=== PATIENT | female | born 1985 | race Caucasian/White ===

== ENCOUNTER 2022-09-09 20:38 | Emergency (ER) | payer OTHER, SELFPAY ==
--- NOTE | ~2022-09-09 | XR_ITS ---
EXAMINATION: XR toe 5th RT min 2V INDICATION: Right fifth toe pain, initial encounter TECHNIQUE: Four views of the right fifth toe are obtained on five radiographs. COMPARISON: None available FINDINGS: There is an acute, traumatic, oblique distal shaft fracture of the fifth proximal phalanx e xtending from the lateral mid shaft to the distal/medial shaft. There are 35 degrees of valgus angula tion at the fracture site. The joint spaces are normal. No additional fracture is identified. There i s soft tissue swelling of the fifth toe. IMPRESSION: 1. Acute angulated shaft fracture of the fifth proximal phalanx. Reviewed, dictated and finalized at location F.
[2022-09-09 20:40] VITALS: BP 119/70; PULSE 92; RESP 14; TEMP 36.6; O2SAT 98
--- NOTE | 2022-09-09 20:48 | ED.LOWEXIN ---
HPI - Extremity Injury (Lower) General Chief Complaint: Extremity Injury, Lower <Danielle Webb APRN - Last Filed: 09/09/22 23:27> Stated Complaint: toe injury <Danielle Webb APRN - Last Filed: 09/09/22 23:27> Time Seen by Provider: 09/09/22 20:47 <Danielle Webb APRN - Last Filed: 09/09/22 23:27> Source: patient <Danielle Webb APRN - Last Filed: 09/09/22 23:27> Mode of arrival: ambulatory <Danielle Webb APRN - Last Filed: 09/09/22 23:27> Limitations: no limitations <Danielle Webb APRN - Last Filed: 09/09/22 23:27> History of Present Illness HPI Narrative: patient is a very pleasant 37 year old female who presents to the ED today ambulatory with spouse for evaluation of pain to the right little toe. patient jammed the toe into the wall. she states she has broken that toe in the past a long time ago as a child. pain is to the outer aspect. she did not take anything prior to arrival. she denies numbness/tingling. she states it's difficult to move the toe due to pain. denies chance of . denies any other injury. <Danielle Webb APRN - Last Filed: 09/09/22 23:27> Related Data Allergies/Adverse Reactions: Allergies Allergy/AdvReac Type Severity Reaction Status Date / Time No Known Allergies Allergy Verified 09/09/22 20:49 <Danielle Webb APRN - Last Filed: 09/09/22 23:27> Review of Systems Review of Systems: CONSTITUTIONAL: Denies fever, chills, or sweats. EYES: Denies visual changes, redness, or discharge. ENT: Denies rhinorrhea, congestion, sore throat, or otalgia. CARDIOVASCULAR: Denies chest pain, palpitations, or edema. RESPIRATORY: Denies cough or dyspnea. GASTROINTESTINAL: Denies abdominal pain, nausea, vomiting, or diarrhea. GENITOURINARY: Denies dysuria or hematuria. SKIN: Denies rash or itching. MUSCULOSKELETAL: Denies back pain. right little toe pain/swelling/bruising. NEUROLOGIC: Denies headache, numbness, or weakness. PSYCHIATRIC: Denies anxiety or depression. <Danielle Webb APRN - Last Filed: 09/09/22 23:27> All systems reviewed & are unremarkable except as noted in HPI and below <Danielle Webb APRN - Last Filed: 09/09/22 23:27> PMFSH Family History Family History: Family History (Updated 10/01/10 @ 16:28 by DOCTOR UNKNOWN) Mother Patient's mother is in good health <Danielle Webb APRN - Last Filed: 09/09/22 23:27> Social History Social History: Social History Alcohol intake: current <Danielle Webb APRN - Last Filed: 09/09/22 23:27> Exam Narrative: GENERAL: Well-appearing, well-nourished, and in no acute distress. HEAD: Normocephalic, atraumatic. EYES: PERRLA and EOMI. ENT: Nares clear, no rhinorrhea or epistaxis. Mucous membranes moist. CHEST: respirations regular and non-labored, No respiratory distress. HEART: Regular rate. RIGHT LOWER EXTREMITY: swelling/bruising/deformity to the right little toe. tenderness noted. decreased ROM. cap refill <2 seconds. distal NV intact. no tenderness proximal to the metatarsal. SKIN: Warm, dry, no rash. NEURO: No focal deficits. Alert and oriented x3. 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 I did independently interpret the x-ray which shows angulated fracture fifth proximal phalanx right toe <Jacey Hall MD - Last Filed: 09/10/22 06:12> Vital Signs Vital signs: Vital Signs Temperature 97.8 F 09/09/22 20:40 Pulse Rate 92 09/09/22 20:40 Respiratory Rate 14 09/09/22 20:40 Blood Pressure 119/70 09/09/22 20:40 Pulse Oximetry 98 09/09/22 20:40 Oxygen Delivery Room Air 09/09/22 20:40 Temperature 97.8 F 09/09/22 20:40 Pulse Rate 92 09/09/22 20:40 Respiratory Rate 14 09/09/22 20:40 Blood Pressure 119/70 09/09/22 20:40 Pulse Oximetry 9
[2022-09-09] MEDS: ACETAMINOPHEN 500 MG TABLET 1000 MG PO (21:19)
== END 2022-09-09 22:53 | disposition home or self-care (01) ==
PROVIDERS: Emergency Provider Nurse Practitioner; PCP Nurse Practitioner Family
DX: S92.511A Displaced fracture of proximal phalanx of right lesser toe(s), initial encounter for closed fracture (principal); W22.01XA Walked into wall, initial encounter
CPT/HCPCS: 28515; 73660; 99284; 99285; A9270

== ENCOUNTER 2024-12-06 09:46 | Emergency (ER) | payer OTHER, SELFPAY ==
--- NOTE | ~2024-12-06 | XR_ITS ---
EXAMINATION: XR chest 2V 12/06/2024 10:19 INDICATION: Chest tightness. Shortness of breath TECHNIQUE:Frontal and lateral images of the chest were obtained. COMPARISON: None available FINDINGS: The lungs are clear. The cardiomediastinal silhouette is within normal limits. There are no pleural effusions. There is no pneumothorax suspected. IMPRESSION: 1: NO ACUTE CARDIOPULMONARY DISEASE. Reviewed, dictated and finalized at location Q.
--- NOTE | ~2024-12-06 | CT_ITS ---
EXAMINATION: CT abdomen pelvis w con DATE: 12/06/2024 12:42 INDICATION: Epigastric pain. Early satiety. TECHNIQUE: Computed tomography (CT) of the abdomen and pelvis was performed with 100 mL Omnipaque-350 intravenous contrast. Automated exposure control and iterative reconstruction technique were employed. The dose-length product was 251.47 mGy-cm. COMPARISON: 08/27/2017 FINDINGS: Lung bases are clear. Heart size is normal. No pericardial or pleural effusion. No interval change in several small low-attenuation lesions in the right hepatic lobe the largest measuring up to 1.2 cm which given greater than 7 years of stability almost certainly benign most likely small hemangiomas. Spleen, pancreas, bilateral adrenal glands are normal. Bilateral subcentimeter low- attenuation renal cysts. Minimal bilateral hydronephrosis without hydroureter or evident obstructing stones or masses. Bowels including the appendix are normal. Bladder is normal. Anteverted uterus and bilateral adnexa are unremarkable. Multiple phleboliths in the pelvis. No free intraperitoneal gas or fluid. No pathologically enlarged abdominal or pelvic lymphadenopathy. Severe disc height loss at L5-S1. Otherwise mild lumbar and lower thoracic spondylosis. IMPRESSION: 1. Minimal bilateral hydronephrosis without hydroureter or evident obstructing stones or masses. No other acute intra-abdominal/pelvic process. 2. No interval change in 4 small hypodense hepatic masses measuring up to 1.2 cm which given 7 years of stability are almost certainly benign, most likely hemangiomas. Reviewed, dictated and finalized at location A. IMPRESSION: 1. Minimal bilateral hydronephrosis without hydroureter or evident obstructing stones or masses. No other acute intra-abdominal/pelvic process. 2. No interval change in 4 small hypodense hepatic masses measuring up to 1.2 c m which given 7 years of stability are almost certainly benign, most likely hem angiomas.
[2024-12-06 09:48] VITALS: BP 164/93; PULSE 112; RESP 20; TEMP 36.4; O2SAT 97
--- NOTE | 2024-12-06 09:48 | ECG_ITS ---
Test Date: 2024-12-06 09:53:08 Measurements Intervals [place] Rate: 125 P: 61 WA: 144 QRS: 25 QRSD: 82 T: 60 QT: 391 QTc: 566 Interpretive Statements SINUS TACHYCARDIA WITH FREQUENT VENTRICULAR PREMATURE COMPLEXES POSSIBLE RIGHT VENTRICULAR CONDUCTION DELAY DELAYED PRECORDIAL R/S TRANSITION BORDERLINE ST-T WAVE ABNORMALITY- INF/HIGH LAT LEADS BASELINE ARTIFACT- I, II, III, AVR, AVL ,AVF, V1-V6 ABNORMAL ECG No previous ECG available for comparison Electronically Signed On 12-06-2024 10:54:27 CDT by Olivier Feliz D.O.
[2024-12-06 10:06] LABS: Hematocrit 43.0 % (37.0-47.0); Hemoglobin 14.6 g/dL (12.0-15.0); Immature Granulocyte Percent A 0.3 % (0-0.5); Lymphocytes Absolute Auto 2.32 K/mm3 (0.9-3.2); Mean Corpuscular HGB Conc 34.0 g/dl (32-36); Mean Corpuscular Hemoglobin 29.0 pg (26-34); Mean Corpuscular Volume 85.3 fl (80-100); Nucleated Red Blood Cells Absolute Auto 0.000 K/mm3 (0.0-0.012); Nucleated Red Blood Cells Perc 0.0 % (0.0-0.2); Platelet Count Result 240 k/mm3 (150-375); Red Blood Count 5.04 M/mm3 (4.2-5.4); White Blood Count 6.5 K/mm3 (4.5-10.0)
[2024-12-06 10:17] LABS: Alanine Aminotransferase 47 U/L (6-35); Albumin Level 4.8 g/dL (3.5-5.1); Alkaline Phosphatase 92 U/L (38-126); Anion Gap 11 mmol/L (4-12); Aspartate Amino Transferase 46 U/L (14-36); Bilirubin,Total 0.6 mg/dL (0.2-1.3); Blood Urea Nitrogen 12 mg/dL (7-17); Calcium 9.5 mg/dL (8.4-10.2); Carbon Dioxide 27 mmol/L (22-30); Chloride 100 mmol/L (98-107); Estimated CRCL calculation 84 ml/min; Estimated Glomerular Filt Rate > 60; Glucose 108 mg/dL (65-110); INR 1.1; Lipase 147 U/L (23-300); Potassium 3.8 mmol/L (3.4-5.0); Prothrombin Time 14.0 Seconds (11.1-14.7); Sodium 138 mmol/L (137-145); Total Protein 8.1 g/dL (6.3-8.2)
[2024-12-06 10:18] LABS: Partial Thromboplastin Time 24.9 Seconds (22.3-36.8)
--- OUTSIDE RECORDS SUMMARY | 2024-12-06 10:19 | XMS_ITS | Clinical Summary ---
Author Organization [facility] [employer] Address [address] [place] [address] Care Team Providers Care Manager Creative Name Role Phone Rene Richard MD Primary Care Provider [phone] Source Comments [facility],non-owned Affiliates and Associated Physician Practices is amultiple site organization consisting of ambulatory clinics and hospital sitesin [place], [place], [place] and [place]. This disclosure is being madepursuant to the Care Everywhere program and may not contain all information available regarding this patient. 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 Gender Identity Not on file Sexual Orientation Not on file Plan of Treatment Health Maintenance Due Date Last Done Comments LIPID TESTING 1983 MAMMOGRAM 1983 HIV SCREENING 07/13/1998 HEPATITIS C SCREENING 07/09/2001 DTAP/TDAP/TD VACCINES (1 - Tdap) 07/13/2002 HEPATITIS B VACCINE (1 of 3 - 19+ 3-dose series) 07/13/2002 HPV VACCINE (1 - 3-dose SCDM series) 07/13/2010 DEPRESSION SCREENING 02/07/2024 COVID-19 VACCINE ( - 2023-2 5 season) 2024 INFLUENZA VACCINE (#1) 2024 ZOSTER VACCINE (1 of 2) 07/13/2033 HIB VACCINE Aged Out No longer eligi ble based on patient's age to complete this topic MENINGOCOCCAL (Group B) VACC INE SHARED DECISION-MAKING Aged Out No longer eligibl e based on patient's age to complete this topic MENINGOCOCCAL GROUPS A/C/Y/W VACCINE Aged Out No longer eligible b ased on patient's age to complete this topic PNEUMOCOCCAL VACCINE Aged Out No long er eligible based on patient's age to complete this topic Insurance [facility] Care Teams Manager Creative Relationship Specialty Start Date End Date Rene Richard MD [address] [place] [address] PCP - General 04/03/19
--- OUTSIDE RECORDS SUMMARY | 2024-12-06 10:19 | XMS_ITS | Encounter Summary ---
Author Organization [facility] Address [address] [place] [address] Care Team Providers Care Plane Captain Name Role Phone Rene Richard MD Primary Care Provider [phone] Encounter Details Date Type Department Care Team (Late st Contact Info) Description 04/04/2019 Lab Requisition [facility] Lab 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 Gender Identity Not on file Sexual Orientation Not on file documented as of this encounter Plan of Treatment Not on file documented as of this encounter Procedures Procedure Name Priority Date/Time Associated Diagnosis Comments DERMATOPATHOLOGY Routine 04/03/2019 12:0 0 AM EARRINGS FABRICATOR documented in this encounter Results * DERMATOPATHOLOGY (04/03/2019 12:00 AM EARRINGS FABRICATOR) Case Report Dermatopathology Report Case: [id number] Authorizing Provider: Tala Perera DO Collected: 04/03/2019 12:00 AM Ordering Location: [facility] Lab Received: 04/04/2019 09:52 AM Pathologist: Eloy Calabrese MD Specimens: A) - Skin, left abdomen B) - Skin, mid low back C) - Skin, left low abdomen 0 3:17 PM EARRINGS FABRICATOR DERMATOPATHOLOGY LABORATORY Final Diagnosis Specimen A. 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 SKIN, mid low back: LENTIGINOUS MELANOCYTIC NEVUS, COMPOUND TYPE, IRRITATED (COMPOUND MELANOCYTIC NEVUS WITH ARCHITECTURAL DISORDER) (D22.5) Specimen C. SKIN, left low abdomen: LENTIGINOUS MELANOCYTIC NEVUS, JUNCTIONAL TYPE (JUNCTIONAL MELANOCYTIC NEVUS WITH ARCHITECTURAL DISORDER) (D22.5) PRESENT AT MARGIN (see microscopic description and comment) 0 3:17 PM [facility] DERMATOPATHOLOGY LABORATORY at [address] [facility] Clinical History A-C: Nevus R/O atypia 0 3:17 PM [facility] DERMATOPATHOLOGY LABORATORY Gross Description Specimen A: Received is one formalin filled container labeled with the patient's name and designated left abdomen. The specimen consists of a shave biopsy measuring 10x8x1 mm. Jar 0. Specimen B: Received is one formalin filled container labeled with the patient's name and designated mid low back. The specimen consists of a shave biopsy measuring 6x6x2 mm. Jar 0. Specimen C: Received is one formalin filled container labeled with the patient's name and designated left low abdomen. The specimen consists of a shave biopsy measuring 13x7x1 mm. Jar 0. 0 3:17 PM [facility] DERMATOPATHOLOGY LABORATORY Microscopic Description Specimen A. SKIN, left abdomen: This is a compound nevus. There is architectural disorder characterized by a lentiginous proliferation of melanocytes between irregular nevus nests of cells along the dermal-epidermal junction. There is underlying lamellar fibroplasia of the papillary dermis. The intradermal component is bland in appearance and matures with depth. (Compound Edward's Nevus or Compound Dysplastic Nevus) Specimen B. SKIN, mid low back: This is a compound nevus. There is melanin pigment in the stratum corneum. There is architectural disorder characterized by a lentiginous proliferation of melanocytes between irregular nevus nests of cells along the dermal epidermal junction. There is underlying fibroplasia of the papillary dermis. The intradermal component is bland in appearance and matures with depth. (Compound Edward's Nevus or Compound Dysplastic Nevus) Specimen C. SKIN, left low abdomen: This is a junctional nevus. There is architectural disorder characterized by a lentiginous proliferation of melanocytes between irregular nests of cells along the dermal-epidermal junction, highlighted by MART-1/Melan-A immunohistochemical staining. There is underlying fibroplasia of the papillary dermis. Original and deeper sections were reviewed. (Junctional Edward's Nevus or Junctional Dysplastic Nevus) This lesion is present at the margin of the specimen. COMMENT: The histopathologic findings of the portion of the lesion sampled are reassuring; however the lesion is broad. As this lesion is present at the margins of the specimen, clinicopathological correlation is recommended as to the nature of the remaining lesion. 0 3:17 PM [facility] DERMATOPATHOLOGY LABORATORY Disclaimer An external and internal positive and negative controls are appropriate for the histochemical, immunohistochemical and immunofluorescence stain(s) in this case (if any), except where stated explicitly. The performance characteristics of the stain(s) cited in this report were developed and its performance characteristic determined by the Dermatopathology Laboratory at [facility], directed by Dr. Tamy Calabrese. These tests need not be, and therefore are not, approved by the [place] Food and Drug Administration. The tests are used for clinical purposes. Billing Codes Specimen Charges Stain Charges 26595 25039 [id number] 1 1 1 [id number] 1 0 3:17 PM EARRINGS FABRICATOR DERMATOPATHOLOGY LABORATORY Embedded Images 0 3:17 PM EARRINGS FABRICATOR DERMATOPATHOLOGY LABORATORY Pathology/Cytology TISSUE SPECIMEN FROM SKIN / Unknown 04/03/2019 04/04/2019 9:52 AM EARRINGS FABRICATOR Miscellaneous samples (specimen) TISSUE SPECIMEN FROM SKIN / Unknown 04/03/2019 04/04/2019 9:52 AM EARRINGS FABRICATOR Miscellaneous samples (specimen) TISSUE SPECIMEN FROM SKIN / Unknown 04/03/2019 04/04/2019 9:52 AM EARRINGS FABRICATOR us Tala Perera DO LAB - PATHOLOGY/CYTOLOGY ORDERABLES Final Result DERMATOPATHOLOGY LABORATORY [facility] - Department of Dermatology [address] [place] [address], [facility] [phone] documented in this encounter Visit Diagnoses Not on filedocumented in this encounter Care Teams Plane Captain Relationship Specialty Start Date End Date Rene Richard MD [address] [place] [address] PCP - General 04/03/19 documented as of this encounter
--- OUTSIDE RECORDS SUMMARY | 2024-12-06 10:19 | XMS_ITS | Data Portability ---
Author Organization [facility], Main Office Address [address] [place] [address] Assessment No assessment recorded. Plan of Treatment Reminders Order Date Submit Date Provider Last Modified By Organization Details Last Modified Time Details Appointments None recorded. Lab None recorded. Referral None recorded. Procedures None recorded. Surgeries None recorded. Imaging None recorded. Medication Orders prednisone 20 mg tablet 2022 023 [id number], [address] [place], [place], [id number], 3 15:07:04 Patient TargetsNo targets recorded. Patient Instructions Encounter Date Encounter Id Patient Instructions Last Modified By Organization Details Last Modified Time 05/12/2022 [id number] wellness when able. [email or web address] Not available 05/12/2022 15:12:36 Reason for Referral None Reported. Problems Name Problem SNOMED Code Status Onset Date Resolution Date Notes Provider Name and Address Organization Details Recorded Time Anxiety 95246385 Active 2018 Not Available [facility] 3 04:49:44 Fatigue 96243278 Active 2018 Not Available [facility] 3 04:49:44 Iron deficiency anemia 67835883 Active 2018 Not Available [facility] 3 04:49:44 Serous otitis media 18181117 Active 2022 Stacy Matamoros NP [address] [address], [place], [address] , [facility] 3 15:05:08 Otalgia of right ear 9798101041 Active 2022 Stacy Matamoros NP [address] [place], [address] , [place] - [facility] 15:05:15 Problem Notes None recorded. Procedures Surgical History Date Name Laterality Status Provider Name and Address Organization Details Recorded Time 02/06/19 16 Tubal Ligation completed Not Available [facility] 04/06 04:41:57 02/06/19 Tonsillectomy completed Not Available [facility] 2022 04:41:57 Imaging Results None recorded. Procedure Notes None recorded. Medical Equipment None Reported. Allergies No known drug allergies Medications Name Sig Start Date Stop Date Status Note LastModified by Organization Details LastModified Time cyclobenzap rine 10 mg tablet TAKE 1 TABLET BY MOUTH EVERY NIGHT AT BEDTIME NEEDED 05/12 completed Not Available Not Available Not Available amoxicillin 500 mg capsule TAKE ONE CAPSULE BY MOUTH EVERY 6 HOURS 10/13 completed Not Available Not Available Not Available cetirizine 10 mg tablet TK ONE T PO QD. 05/28 completed Not Available Not Available Not Available meloxicam 15 mg tablet TAKE 1 TABLET BY MOUTH EVERY DAY 2022 active Not Available Not Available Not Avai lable Medrol (Jj) 4 mg tablets in a dose pack Take 1 tablet every day by oral route. 05/12 completed Not Available Not Available Not Available prednisone 20 mg tablet TAKE 1 TABLET BY MOUTH EVERY DAY FOR 5 DAYS active Not Available Not Available No t Available sertraline 100 mg tablet TAKE 1 TABLET BY MOUTH EVERY DAY active Not Available Not Available No t Available Zithromax Z-Jj 250 mg tablet TAKE 2 TABLETS (500 MG) BY ORAL ROUTE ONCE DAILY FOR 1 DAY THEN 1 TABLET (250 MG) BY ORAL ROUTE ONCE DAILY FOR 4 DAYS 05/12 completed Not Available Not Available Not Available hydroxyzine HCl 50 mg tablet TK 1 T PO QID PRN active Not Available Not Available No t Available acetaminoph en 300 mg-codeine 30 mg tablet TAKE ONE OR TWO TABLETS BY MOUTH EVERY 4-6 HOURS NEEDED FOR PAIN. DO NOT EXCEED 10 TABLETS PER DAY 10/13 completed Not Available Not Available Not Available amoxicillin 875 mg tablet 12/22 completed Not Available Not Available Not Available benzonatate 100 mg capsule TAKE 2 CAPSULES BY MOUTH THREE TIMES DAILY. RINSE MOUTH AFTER USE 05/12 completed Not Available Not Available Not Available buspirone 10 mg tablet TAKE 1 TABLET BY MOUTH TWICE DAILY NEEDED active Not Available Not Available No t Available prednisone 50 mg tablet TAKE 1 TABLET BY MOUTH EVERY DAY FOR 5 DAYS 10/13 completed Not Available Not Available Not Available mupirocin 2 % topical ointment 04/09 completed Not Available Not Available Not Available sertraline 50 mg tablet active Not Available Not Available Not Available amoxicillin 875 mg-potassiu m clavulanate 125 mg tablet TK 1 T PO Q 12 HOURS FOR 10 DAYS 05/28 completed Not Available Not Available Not Available Symbicort 160 mcg-4.5 mcg/actuati on HFA aerosol inhaler INHALE 2 PUFFS BY MOUTH TWICE DAILY active Not Available Not Available No t Available Paxlovid 300 mg (150 mg x 2)-100 mg tablets in a dose pack Take 1 dose pk twice a day by oral route for 5 days. 05/12 completed Not Available Not Available Not Available Vitals Date Recorded Body height Body mass index (BMI) Body weight Body temperature Heart rate Respiratory rate Oxygen saturation Oxygen saturation in Arterial blood by Pulse oximetry Pain severity - 0-10 verbal numeric rating [Score] - Reported Systolic And Diastolic Provider Name and Address Organization Details Last Updated DateTime 3 167.64 cm 25.2 kg/m2 62671.1 1 g 98.7 [degF] 81 /min 16 /min 99 % 99 % 1 114/78 mm[Hg] Stacy Zaidi RN [place] [facility] 3 14:54:07 Date Recorded Body mass index (BMI) Body height Body weight Provider Name and Address Organization Details Last Updated DateTime 05/28/2020 25.8 kg/m2 167.64 cm 48363.78 g Not Available [facility] 04/06/2022 04:46:26 Date Recorded Body weight Provider Name an d Address Organization Details Last Updated DateTime 10/13/2021 78442.22 g Not Available [facility] 3 04:46:26 Date Recorded Body weight Provider Name an d Address Organization Details Last Updated DateTime 10/27/2021 19886.22 g Not Available [facility] 3 04:46:26 Date Recorded Body mass index (BMI) Body height Oxygen saturation Oxygen saturation in Arterial blood by Pulse oximetry Heart rate Body temperature Body weight Systolic And Diastolic Provider Name and Address Organization Details Last Updated DateTime 2 24.5 kg/m2 167.64 cm 93 % 93 % 111 /min 98.4 [degF] 24094.0 4 g 140/86 mm[Hg] Not Available [facility] 3 04:46:24 Social History Question Answer Notes LastModified by Organizat ion Details LastModified Time Tobacco Smoking Status Never Smoker Not Available [facility] 04/06/2022 04:28:55 Do You Have An Advance Directive? No [id number] Information not available 04/06/2022 Is Blood Transfusion Acceptable In An Emergency? Yes Information not available 05/12/2022 What Is Your Level Of Caffeine Consumption? Occasional [id number] Information not available 04/06/2022 What Is Your Code Status? Full Code [email or web address] Information not available 05/12/2022 In The 14 Days Before Symptom Onset, Have You Had Close Contact With A Laboratory-confir med COVID-19 While That Case Was Ill? No [id number] Information not available 04/06/2022 In The 14 Days Before Symptom Onset, Have You Had Close Contact With A Person Who Is Under Investigation For COVID-19 While That Person Was Ill? No [id number].[id number] Information not available 04/06/2022 What Type Of Diet Are You Following? REGULAR [id number].[id number] Information not available 04/06/2022 What Is The Highest Grade Or Level Of School You Have Completed Or The Highest Degree You Have Received? [id number] [id number].[id number] Information not available 04/06/2022 Have There Been Any Changes To Your Family Or Social Situation? No [id number] Information not available 04/06/2022 What Is The Fluoride Status Of Your Home? Fluoridated [id number].[id number] Information not available 04/06/2022 Do You Use Insect Repellent Routinely? Yes [id number].56414 [id number] Information not available 04/06/2022 Where Do You Live? [place] MIGRATION.[id number] [id number] Information not available 04/06/2022 Do You Have A Medical Power Of Compliance Coordinator? No [id number].88384 97763 Information not available 04/06/2022 How Many Children Do You Have? 4 Information not available 05/12/2022 Do You Have Any Pets? Yes [id number] Information not available 04/06/2022 Do You Use Protection During Sex? No Information not available 05/12/2022 What Is Your Relationship Status? [id number].[id number] Information not available 04/06/2022 Do You Use Your Seat Belt Or Car Seat Routinely? Yes Information not available 05/12/2022 Are You Sexually Active? Yes Information not available 05/12/2022 Do You Have Smoke And Carbon Monoxide Detectors In Your Home? Yes [id number] Information not available 04/06/2022 Are You Passively Exposed To Smoke? No MIGRATION.77880 [id number] Information not available 04/06/2022 Are There Any Smokers In Your House? No MIGRATION.22505 [id number] Information not available 04/06/2022 Do You Participate In Social Media? Yes MIGRATION.70379 46582 Information not available 04/06/2022 Do You Use Sunscreen Routinely? Yes MIGRATION.75996 10892 Information not available 04/06/2022 Have You Recently Traveled Abroad? No MIGRATION.95217 08020 Information not available 04/06/2022 Are You Currently In School? No MIGRATION.47949 02538 Information not available 04/06/2022 Sex: Female Functional Status Question Answer Note LastModified by Sand Sign ion Details LastModified Time Do you use any illicit or recreational drugs? No MIGRATION.[id number] 1576 Information not available 04/06/2022 Do you or have you ever used any other forms of tobacco or nicotine? Yes [id number].[id number] Information not available 04/06/2022 What is your level of alcohol consumption? Occasional MIGRATION.143965 8898 Information not available 04/06/2022 Are you currently employed? Yes Information not available 05/12/2022 Do you or have you ever used e-cigarettes or vape? Current user of electronic cigarettes MIGRATION.[id number] 6573 Information not available 04/06/2022 What is your exercise level? None Information not available 05/12/2022 Mental Status Question Answer Note LastModified by Organizat ion Details LastModified Time Do you feel stressed (tense, restless, nervous, or anxious, or unable to sleep at night)? [id number] Information not available 04/06/2022 Family History Relationship Description Onset Age of this Age Resolved Age Notes LastModified by Organization Details LastModified Time Father Hypertensive disorder [id number] Not available 04/06/2022 04:42:02 Mother Family history of malignant neoplasm [id number] Not available 04/06/2022 04:42:02 Medical History Condition Response HEADACHES/MIGRAINES Y Gynecological History Statement/Question Response Flow Heavy Date of LMP 04/08/2022 STIs/STDs N Dislike of Light during Menstrual Headac he Y Do your menstrual headaches get severe N Duration of Flow (days) 5 Most Recent Mammogram Age at Menarche 11 Breast Problems none How many live births 4 Date of Last Colonoscopy Frequency of Cycle (Q days) 28 Most Recent Bone Density Sexually Active? Y Do you get headaches during your period Y Menses Monthly Y Date of Last Pap Smear Discharge none Obstetrics History GPAL:G 4 P 4 0 0 0 Type Value Full Term 4 Total 4 Immunizations Vaccine Type Date Status Note Provider Nam e and Address Organization Details Recorded Time Influenza, split virus, quadrivalent, preservative 9 completed Not Available [facility] 04/06/2022 05:00:24 Influenza, split virus, quadrivalent, PF 0 completed Not Available [facility] 04/06/2022 05:00:24 Past Encounters Encounter ID Performer Location Encounter Start Date Encounter Closed Date Diagnosis/Indication Diagnosis SNOMED-CT Code Diagnosis ICD10 Code Diagnosis IMO Codes Diagnosis Note [id number] Derrick Roa MD [address] [address] 05/28/2020 00:00:00 05/28/2020 12:46:20 [id number] Stacy Matamoros NP [address] [address] 10/13/2021 00:00:00 10/13/2021 17:01:34 [id number] Stacy Matamoros NP [address] [address] 10/27/2021 00:00:00 10/27/2021 09:43:43 [id number] Stacy Matamoros NP [facility] [address] 11/09/2021 00:00:00 11/09/2021 10:02:19 [id number] Stacy Matamoros NP [facility] [address] 05/12/2022 14:42:17 05/12/2022 15:12:30 Serous otitis media 97491865 H65.92 Prednisone 20 mg po daily for 5 days. Otalgia of right ear 016 6704003 H92.01 nsaid. Health Concerns Section Related Observation LastModified by Organization Detai ls LastModified Time None Recorded Concern Status LastModified by Organization Details LastModified Time None Recorded Advance Directives Directive N: Payers Insurance Date Sequence Insurance Name Policy Number Policy Reilly Covered Member ID Reilly Member ID Guarantor Name 05/23/[address] [facility] [id number] Samuel Jignesh Grant [id number] Luann Grant Notes Date Note Type Note Provider Name and Address Organization Details Recorded Time 05/12/2022 text/html Here for left ear pain. Pain for 3-4 weeks. Feeling like fluid moving around. More pain when sleeping. Pain into left cheek. Right ear started in the past week. Hearing is ok. No discharge or drainage. Had started on home amox for 3 days, but no relief. Was old meds. Stacy Matamoros NP [address] [facility], [place], [address], [place] - [facility] 05/12/2022 15:13:08 OBGyn Episode No OBEpisode recorded.
[2024-12-06 10:28] LABS: Troponin I < 0.012 ng/mL (0.000-0.034)
[2024-12-06 11:30] VITALS: BP 112/83; PULSE 87; RESP 16; O2SAT 97; O2SAT 99
[2024-12-06 11:36] VITALS: BP 112/83; PULSE 95; RESP 20; O2SAT 100
[2024-12-06] MEDS: ASPIRIN 81 MG CHEWABLE TABLET 324 MG PO (11:37)
[2024-12-06 12:06] LABS: Influenza A QL RT-PCR Negative (Negative); Influenza B QL RT-PCR Negative (Negative); RSV RNA, RT-PCR Negative (Negative); SARS-CoV-2 RNA PCR Negative (Negative)
--- NOTE | 2024-12-06 12:18 | ED.CHESTPAIN ---
HPI - Chest Pain General Chief Complaint: Chest Pain Stated Complaint: chest pain and tightness Time Seen by Provider: 12/06/24 11:44 Source: patient Mode of arrival: ambulatory Limitations: no limitations History of Present Illness HPI narrative: This is a 39-year-old female with history of endometriosis who presents the ED for epigastric abdominal pain. Patient states for the past 3 weeks, she has been having right flank pain that was similar to a prior kidney infection. She tried taking medications at home for this foot over the last several days, it has been worsening and has become more isolated to the epigastrium. She states she has been having pain with eating and nausea. Denies vomiting, constipation, fevers, chills, shortness of breath. Patient also notes that she has lost approximately 15 lb in the last 6 months without trying. Also notes that she has been breaking out in sweats more frequently. Related Data Allergies Allergy/AdvReac Type Severity Reaction Status Date / Time No Known Allergies Allergy Verified 09/09/22 20:49 Review of Systems Review of Systems: Gen.: Denies fevers or chills Eyes: Denies eye pain or visual change ENT: Denies congestion Respiratory: Denies shortness of breath or cough CV: Denies chest pain or palpitations GI: As per HPI denies burning, urgency, frequency or hematuria Musculoskeletal: Denies back pain or muscle pain Neuro: Denies numbness, tingling, weakness or focal weakness Skin: Denies rash Except as documented, all other systems reviewed and negative [facility] Family History Family History Mother Patient's mother is in good health Social History Social History Alcohol intake: current Exam Narrative: APPEARANCE: No acute distress, nontoxic, resting in bed EYES: EOMI HEENT: Normocephalic, atraumatic, OMM RESPIRATORY: No respiratory distress Clear to auscultation bilaterally with no rhonchi wheezing or rales. CARDIOVASCULAR: Regular rate and rhythm without murmurs rubs or gallops. ABDOMINAL: Soft, mild epigastric and periumbilical tenderness to palpation, nondistended, no rebound or guarding MUSCULOSKELETAl: Moves all extremities. No clubbing, cyanosis or edema. NEURO: Awake and alert. Following commands, speech normal, no focal deficits SKIN:: Warm, dry. No rashes lesions or abrasions PSYCHIATRIC: Normal affect/mood, Course Vital Signs Vital signs: Vital Signs Temperature 97.6 F 12/06/24 09:48 Pulse Rate 112 H 12/06/24 09:48 Respiratory Rate 20 12/06/24 09:48 Blood Pressure 164/93 H 12/06/24 09:48 Pulse Oximetry 97 12/06/24 09:48 Oxygen Delivery Room Air 12/06/24 09:48 Temperature 97.6 F 12/06/24 09:48 Pulse Rate 86 12/06/24 13:54 Respiratory Rate 16 12/06/24 13:54 Blood Pressure 105/81 12/06/24 13:54 Pulse Oximetry 96 12/06/24 13:54 Oxygen Delivery Room Air 12/06/24 11:30 MDM - Chest Pain MDM Narrative Medical decision making narrative: 39-year-old female Presenting for epigastric abdominal pain. On initial evaluation patient was in no acute distress afebrile, hemodynamic stable. Differentials include but are not limited to: ACS, Cholecystitis, choledocolithiasis, GERD, PUD, Pancreatitis, SBO, Cancer, AAA Notable exam findings: Mild epigastric and periumbilical tenderness to palpation without peritoneal signs Notable lab findings: CBC and CMP without significant abnormalities. UA clear. COVID/flu/RSV negative. Notable imaging findings: CT abdomen is soft pelvis showed minimal bilateral hydronephrosis without hydroureter or obstructing stones. Stable appearing hypodense hepatic mass. Chest x-ray showed no acute process. The bilateral hydronephrosis may be the source of the patient's symptoms. She may also have some gastritis or PUD. Given this, she was given a referral to Dr. Diane, GI for further evaluation of the gastric symptoms. She was also given a referral to Dr. Infante, nephrology, for further evaluation of the hydronephrosis without obvious obstruction. Patient was agreeable to this plan. Given strict return precautions are in Medical Records Data Attestation: I reviewed the patient's medical records. Lab Data Attestation: I reviewed the patient's lab results. 12/06/24 09:59 12/06/24 09:59 Labs: Lab Results 12/06/24 12/06/24 12/06/24 Range/Units 09:59 11:24 12:25 WBC 6.5 (4.5-10.0) K/mm3 RBC 5.04 (4.2-5.4) M/mm3 Hgb 14.6 (12.0-15.0) g/dL Hct 43.0 (37.0-47.0) % MCV 85.3 (80-100) fl MCH 29.0 (26-34) pg MCHC 34.0 (32-36) g/dl RDW 12.9 (11.5-14.5) % Plt Count 240 (150-375) k/mm3 MPV 9.0 (7.4-10.4) fl Immature Gran % (Auto) 0.3 (0-0.5) % Neut % (Auto) 53.8 (45.5-73.1) % Lymph % (Auto) 35.5 (18.3-44.2) % [place] % (Auto) 5.5 (2.6-8.5) % Eos % (Auto) 3.8 (0-4.4) % Baso % (Auto) 1.1 (0.2-1.2) % Lymph # (Auto) 2.32 (0.9-3.2) K/mm3 [place] # (Auto) 0.4 (0.1-0.6) K/mm3 Eos # (Auto) 0.3 (0-0.3) K/mm3 Baso # (Auto) 0.1 (0.0-0.1) K/mm3 Abs Immat Gran (auto) 0.02 (0.00-0.031) K/mm3 Absolute Neuts (auto) 3.5 (1.3-6.7) K/mm3 Absolute Nucleated RBC 0.000 (0.0-0.012) K/mm3 Nucleated RBC % 0.0 (0.0-0.2) % PT 14.0 (11.1-14.7) Seconds INR 1.1 APTT 24.9 (22.3-36.8) Seconds Sodium 138 (137-145) mmol/L Potassium 3.8 (3.4-5.0) mmol/L Chloride 100 (98-107) mmol/L Carbon Dioxide 27 (22-30) mmol/L Anion Gap 11 (4-12) mmol/L BUN 12 (7-17) mg/dL Creatinine 0.71 (0.7-1.0) mg/dL Estim Creat Clear Calc 84 ml/min Estimated GFR > 60 (59 - ) Glucose 108 (65-110) mg/dL Calcium 9.5 (8.4-10.2) mg/dL Total Bilirubin 0.6 (0.2-1.3) mg/dL AST 46 H (14-36) U/L ALT 47 H (6-35) U/L Alkaline Phosphatase 92 (38-126) U/L Troponin I < 0.012 (0.000-0.034) ng/mL Total Protein 8.1 (6.3-8.2) g/dL Albumin 4.8 (3.5-5.1) g/dL Lipase 147 (23-300) U/L Urine Color Yellow (Yellow) Urine Appearance Clear (Clear) Urine pH 7.5 (5.0-9.0) Ur Specific [place] 1.007 (1.001-1.035) Urine Protein Negative (Negative) mg/dL Urine Glucose (UA) Negative (Negative) mg/dL Urine Ketones Negative (Negative) mg/dL Ur Blood (Man) Trace (Negative) Urine Nitrate Negative (Negative) Urine Bilirubin Negative (Negative) Urine Urobilinogen 0.2 (<2.0) mg/dL Leukocyte Esterase Rfl Negative (Negative) AMEE/UL Urine RBC 0-2 (0-2) /hpf Urine WBC 0-5 (0-3) /hpf Ur Squamous Epith Cells None seen (Few) /hpf Urine Bacteria None seen /hpf Urine Casts 0-2 POC Urine HCG, Qual (Negative) Influenza A (RT-PCR) Negative (Negative) Influenza B (RT-PCR) Negative (Negative) RSV (RT-PCR) Negative (Negative) SARS-CoV-2 RNA (RT-PCR) Negative (Negative) 12/06/24 Range/Units 12:32 WBC (4.5-10.0) K/mm3 RBC (4.2-5.4) M/mm3 Hgb (12.0-15.0) g/dL Hct (37.0-47.0) % MCV (80-100) fl MCH (26-34) pg MCHC (32-36) g/dl RDW (11.5-14.5) % Plt Count (150-375) k/mm3 MPV (7.4-10.4) fl Immature Gran % (Auto) (0-0.5) % Neut % (Auto) (45.5-73.1) % Lymph % (Auto) (18.3-44.2) % [place] % (Auto) (2.6-8.5) % Eos % (Auto) (0-4.4) % Baso % (Auto) (0.2-1.2) % Lymph # (Auto) (0.9-3.2) K/mm3 [place] # (Auto) (0.1-0.6) K/mm3 Eos # (Auto) (0-0.3) K/mm3 Baso # (Auto) (0.0-0.1) K/mm3 Abs Immat Gran (auto) (0.00-0.031) K/mm3 Absolute Neuts (auto) (1.3-6.7) K/mm3 Absolute Nucleated RBC (0.0-0.012) K/mm3 Nucleated RBC % (0.0-0.2) % PT (11.1-14.7) Seconds INR APTT (22.3-36.8) Seconds Sodium (137-145) mmol/L Potassium (3.4-5.0) mmol/L Chloride (98-107) mmol/L Carbon Dioxide (22-30) mmol/L Anion Gap (4-12) mmol/L BUN (7-17) mg/dL Creatinine (0.7-1.0) mg/dL Estim Creat Clear Calc ml/min Estimated GFR (59 - ) Glucose (65-110) mg/dL Calcium (8.4-10.2) mg/dL Total Bilirubin (0.2-1.3) mg/dL AST (14-36) U/L ALT (6-35) U/L Alkaline Phosphatase (38-126) U/L Troponin I (0.000-0.034) ng/mL Total Protein (6.3-8.2) g/dL Albumin (3.5-5.1) g/dL Lipase (23-300) U/L Urine Color (Yellow) Urine Appearance (Clear) Urine pH (5.0-9.0) Ur Specific [place] (1.001-1.035) Urine Protein (Negative) mg/dL Urine Glucose (UA) (Negative) mg/dL Urine Ketones (Negative) mg/dL Ur Blood (Man) (Negative) Urine Nitrate (Negative) Urine Bilirubin (Negative) Urine Urobilinogen (<2.0) mg/dL Leukocyte Esterase Rfl (Negative) AMEE/UL Urine RBC (0-2) /hpf Urine WBC (0-3) /hpf Ur Squamous Epith Cells (Few) /hpf Urine Bacteria /hpf Urine Casts POC Urine HCG, Qual Negative (Negative) Influenza A (RT-PCR) (Negative) Influenza B (RT-PCR) (Negative) RSV (RT-PCR) (Negative) SARS-CoV-2 RNA (RT-PCR) (Negative) Imaging Data Attestation: I personally reviewed and interpreted this imaging study as follows: My impression: Chest x-ray: Normal cardiac silhouette, no consolidations, no pleural effusions, no pulmonary vascular congestion Radiologist's impression: Impressions Chest X-Ray 12/06/24 10:21 IMPRESSION: 1: NO ACUTE CARDIOPULMONARY DISEASE. Abdomen/Pelvis CT 12/06/24 12:55 IMPRESSION: 1. Minimal bilateral hydronephrosis without hydroureter or evident obstructing stones or masses. No other acute intra-abdominal/pelvic process. 2. No interval change in 4 small hypodense hepatic masses measuring up to 1.2 cm which given 7 years of stability are almost certainly benign, most likely hemangiomas. ECG Data EKG #1: Attestation: I personally reviewed and interpreted this ECG as follows: ECG completion date: 12/06/24 ECG completion time: 09:53 Interpretation: Sinus tachycardia with PVCs, normal axis, normal intervals, no acute ST or T-wave changes Discharge Plan Discharge Clinical Impression: Abdominal pain Qualifiers: Abdominal location: epigastric Qualified Code(s): R10.13 - Epigastric pain Hydronephrosis Qualifiers: Hydronephrosis type: unspecified Qualified Code(s): N13.30 - Unspecified hydronephrosis Patient Disposition: Home Condition: Stable Instructions: Antibiotic Form Additional Instructions: Labs and scans were reassuring. You were found to have mild swelling of your kidneys but there is no clear reason for this. Because of this, he will be given a referral Dr. Infante, nephrology. I suspect that your symptoms are related to her stomach and may be due to a gastroenteritis or an ulcer were slow transit of her stomach. You were given a referral to Dr. Diane, gastroenterology, call his office to schedule appointment in the next week for re-evaluation. Return to the ED for any new or worsening symptoms. Patient Language: Indonesian Follow-up/Referrals: Stacy Matamoros APRN [Advanced Practice Nurse, Family Practice] Bi Infante MD [Physician, Nephrology] Clem Diane MD [Physician, Gastroenterology]
[2024-12-06 12:35] LABS: BEDSIDEPREGUCG Negative (Negative)
[2024-12-06 13:25] LABS: Add Urine Microscopic? YES; Appearance Urine Clear (Clear); Glucose Urine UA Negative (Negative); Leukocyte Esterase Ur Negative LEU/UL (Negative); Nitrate Urine Negative (Negative); Non Pathogenic Casts 0-2; Specific Grav Ur 1.007 (1.001-1.035)
[2024-12-06 13:54] VITALS: BP 105/81; PULSE 86; RESP 16; O2SAT 96
== END 2024-12-06 13:55 | disposition home or self-care (01) ==
PROVIDERS: Emergency Provider Student in an Organized Health Care Education/Training Program
DX: R10.13 Epigastric pain (principal); N13.30 Unspecified hydronephrosis; Z20.822 Contact with and (suspected) exposure to COVID-19; N80.9 Endometriosis, unspecified
CPT/HCPCS: 36415; 71046; 74177; 80053; 81001; 81025; 83690; 84484; 85025; 85610; 85730; 87637; 93005; 99284; A9270; Q9967